=== PATIENT | female | born 1985 | race Caucasian/White ===

== ENCOUNTER 2016-10-30 20:30 | Inpatient (IN) | payer OTHER ==
[~2016-10-30 20:30] MED LIST: Dinoprostone* 10 MG VAG.SUPP VAGINAL ONE
[2016-10-31 00:34] LABS: Hematocrit 32 % (35-47); Hemoglobin 10.4 g/dl (12.0-16.0); Mean Corpuscular HGB Conc 33 g/dl (31-36); Mean Corpuscular Hemoglobin 26 pg (27-31); Mean Corpuscular Volume 81 fL (80-97); Mean Platelet Volume 9 um3 (7.4-10.4); Red Blood Count 3.96 10^6/ul (4.0-5.4); Red Cell Distribution Width 17 % (10.5-15); White Blood Count 9.8 10^3/ul (3.5-10.8)
[2016-10-31] MEDS ORDERED: ceFOXitin 2 GM IVPREMIX* 2 GM/50 ML BAG ONE (01:19)
[2016-10-31] MEDS ORDERED: Sodium Citrate/Citric Acid* 15 ML UDC ONE (01:19)
[2016-10-31 01:29] LABS: BUN/Creatinine Ratio 16.4 (8-20); Calcium 8.6 mg/dL (8.6-10.3); EGFR African American 163.7 (>60); EGFR Non-African American 127.3 (>60); Globulin 2.7 g/dL (2-4); Potassium 3.9 mmol/L (3.5-5.0); Total Bilirubin 0.3 mg/dL (0.2-1.0); Total Protein 5.7 g/dL (6.4-8.9)
[2016-10-31] MEDS ORDERED: Morphine PF AMP (0.5MG/ML)* 5 MG/10 ML AMP ONE (02:01)
[2016-10-31] MEDS ORDERED: fentaNYL* 50 MCG/ML 2 ML VIAL (100 MCG VIAL) ONE (02:23)
[2016-10-31] MEDS ORDERED: Carboprost Tromethamine* 250 MCG INJ ONE ×2 (02:23→02:25)
[2016-10-31] MEDS ORDERED: OXYTOCIN* 10 UNITS/ML 1 ML VIAL ONE ×2 (02:24→06:53)
[2016-10-31] MEDS ORDERED: Oxytocin in LR* 40 UNITS/2,000 ML BAG IVPB ONE (02:24)
[2016-10-31] MEDS ORDERED: Lidocaine 2% PF * 5 ML VIAL ONE (02:29)
[2016-10-31] MEDS ORDERED: Dexamethasone IV* 4 MG/ML 1 ML (4 MG) ONE (02:29)
[2016-10-31] MEDS ORDERED: Propofol* 10 MG/ML 20 ML BTL IV PUSH ONE (02:29)
[2016-10-31] MEDS ORDERED: Ondansetron INJ* 2 MG/ML VIAL ONE (02:29)
[2016-10-31] MEDS ORDERED: Succinylcholine* 20 MG/ML 10 ML VIAL ONE (02:29)
[2016-10-31] MEDS ORDERED: Zolpidem TAB* 5 MG PO PRN (03:18)
[2016-10-31] MEDS ORDERED: Glycerin ADULT SUPP PR PRN (03:18)
[2016-10-31] MEDS ORDERED: Misoprostol TAB* 200 MCG PR ONE (03:18)
[2016-10-31] MEDS ORDERED: Witch Hazel PAD* JAR TOPICAL PRN (03:18)
[2016-10-31] MEDS ORDERED: Dibucaine 1% 28.35 GM TUBE PR PRN (03:18)
[2016-10-31] MEDS ORDERED: oxyCODONE/Acetamin 5/325 MG* TAB PO PRN ×2 (03:18)
[2016-10-31] MEDS ORDERED: Carboprost Tromethamine* 250 MCG INJ IM ONE (03:18)
[2016-10-31] MEDS ORDERED: Acetaminophen TAB* 325 MG PO PRN (03:18)
[2016-10-31] MEDS: fentaNYL* 50 MCG/ML 2 ML VIAL (100 MCG VIAL) IV PRN ×2 (03:25→03:49)
[2016-10-31] MEDS ORDERED: oxyCODONE TAB* 5 MG TAB PO PRN (03:37)
[2016-10-31] MEDS ORDERED: HYDROmorphone* 1 MG/ML 1 ML SYR IV PRN (03:37)
[2016-10-31] MEDS ORDERED: Ketorolac INJ* 30 MG/ML 1 ML VIAL IV PRN (03:37)
[2016-10-31] MEDS ORDERED: Labetalol IV* 5 MG/ML 20 ML VIAL ONE (03:44)
[2016-10-31] MEDS ORDERED: Oxytocin in LR* 20 UNITS/1,000 ML BAG IVPB SCH (04:00)
[2016-10-31] MEDS ORDERED: HYDROmorphone PCA* 20 MG/20 ML PCA.SYRING PCA SCH (04:00)
[2016-10-31] MEDS ORDERED: Ketorolac INJ* 30 MG/ML 1 ML VIAL ONE (04:36)
[2016-10-31] MEDS ORDERED: Labetalol IV* 5 MG/ML 20 ML VIAL IV PUSH ONE (06:00)
[2016-10-31] MEDS ORDERED: Oxytocin in LR* 20 UNITS/1,000 ML BAG IVPB ONE (06:09)
[2016-10-31] MEDS: Simethicone CHEW TAB* 80 MG PO SCH ×4 (08:50→20:44)
[2016-10-31] MEDS: Ibuprofen TAB* 600 MG PO PRN ×2 (08:51→20:45)
[2016-10-31] MEDS: Labetalol TAB* 100 MG PO SCH ×2 (08:51→20:45)
[2016-10-31] MEDS: Docusate CAP* 100 MG PO SCH ×3 (08:51→20:45)
--- NOTE | 2016-10-31 13:03 | OP ---
DATE OF OPERATION: 10/30/16 - ROOM# [id number] DATE OF : 81 SURGEON: Pb Khan MD PROMOTIONS COORDINATOR: Eunice Alanis MD ANESTHESIOLOGIST: Antionette Sanchez MD ANESTHESIA: General endotracheal tube. PRE-OP DIAGNOSES: Preeclampsia and category 2 tracing, remote from delivery. POST-OP DIAGNOSES: Preeclampsia and category 2 tracing, remote from delivery. OPERATIVE PROCEDURE: Stat section. COMPLICATIONS: Include uterine atony. FINDINGS: This is a 31-year-old 4 para 2, who presented at 38 plus weeks with mild preeclampsia. She was started on Cervidil at approximately 10 o 'clock in the evening. Around midnight, baby began to develop tachycardia and was sustained for over an hour in the 180s. She was given IV hydration, O2, and put on her left side. After this period of time, there began occasional deep variable decels down into the 60s and 80s, and the patient did not seem to be ovi significantly. A was called. At that time, it went down to 80 again. I was called urgently and we went back to the operating room. By the time Anesthesia arrived, the heart rate was in the 120s with moderate variability, but when she sat up, the heart rate could not be distinguished from maternal heart rate and thought it was possibly in the 80s again. Decision was made to proceed with general anesthesia and at the time of , she had a viable female, Apgars 8 and 9, weight was 8 pounds 8 ounces. Placenta contained calcifications. The tubes and ovaries appeared normal. DESCRIPTION OF PROCEDURE: The patient was identified and procedure identified as stat section. The patient was in the operating room and under general anesthesia, was prepped and draped quickly and a Pfannenstiel incision was made in the abdomen and carried down through the fat, fascia, and peritoneum. A transverse incision was made in the lower uterine segment and extended laterally using blunt dissection. The above infant was delivered through the incision with ease. A cord was noted to be wrapped around the neck and bunched up along the shoulder. Once the infant was delivered, the cord was doubly clamped and cut, and the infant was handed to the awaiting meat team lead. Cord blood and cord pH was obtained. Placenta delivered manually. The uterus was wiped out with a wet lap sponge. Uterus was brought out through the abdominal incisions. Uterine atony was noted. The patient was given IV Pitocin , dose of 250 mcg of Hemabate, and Cytotec 800 per rectum. With this, the uterine tone improved. The uterus incision was closed using 0 Polysorb in a running fashion. A second layer was used to imbricate the first layer. Hemostasis was achieved on the uterus. The uterus was placed back into the abdominal cavity. The gutters wiped out with a wet lap sponge. Good hemostasis was verified. The peritoneum was closed using 3-0 Polysorb in a running fashion. Hemostasis was achieved in the subrectus layer. The fascia was closed using 0 Polysorb in a running fashion. Copious irrigation was utilized and suctioned out of the subcuticular space. This was closed using 3- 0 Polysorb in a simple fashion and the skin was closed with 4-0 Monocryl in a subcuticular fashion. Mastisol and Steri-Strips were applied, and the patient returned to recovery room in stable condition. All sponge and instrument counts were correct. [id number]/[facility] #: [id number] [facility]OSPITALMulugeta
[2016-11-01] MEDS: Ibuprofen TAB* 600 MG PO PRN ×3 (03:07→17:11)
[2016-11-01] MEDS: oxyCODONE/Acetamin 5/325 MG* TAB PO PRN ×4 (07:03→22:45)
[2016-11-01] MEDS: Labetalol TAB* 100 MG PO SCH ×2 (08:32→20:50)
[2016-11-01] MEDS: Simethicone CHEW TAB* 80 MG PO SCH ×4 (08:32→20:50)
[2016-11-01] MEDS: Docusate CAP* 100 MG PO SCH ×3 (08:32→20:50)
[2016-11-01] MEDS: Ferrous Gluconate TAB* 324 MG TAB PO SCH ×2 (08:34→20:50)
[2016-11-01 09:00] LABS: Hematocrit 23 % (35-47); Hemoglobin 7.4 g/dl (12.0-16.0); Mean Corpuscular HGB Conc 32 g/dl (31-36); Mean Corpuscular Hemoglobin 26 pg (27-31); Mean Corpuscular Volume 81 fL (80-97); Mean Platelet Volume 8 um3 (7.4-10.4); Red Blood Count 2.84 10^6/ul (4.0-5.4); Red Cell Distribution Width 17 % (10.5-15); White Blood Count 8.7 10^3/ul (3.5-10.8)
[2016-11-02] MEDS: Ibuprofen TAB* 600 MG PO PRN ×2 (04:00→16:32)
[2016-11-02] MEDS: oxyCODONE/Acetamin 5/325 MG* TAB PO PRN ×4 (04:00→22:02)
[2016-11-02] MEDS: Docusate CAP* 100 MG PO SCH ×3 (07:44→22:02)
[2016-11-02] MEDS: Ferrous Gluconate TAB* 324 MG TAB PO SCH ×2 (07:44→22:03)
[2016-11-02] MEDS: Simethicone CHEW TAB* 80 MG PO SCH ×4 (07:44→22:02)
[2016-11-02] MEDS: Labetalol TAB* 100 MG PO SCH ×2 (09:20→22:02)
[2016-11-03] MEDS: oxyCODONE/Acetamin 5/325 MG* TAB PO PRN ×2 (04:12→07:59)
[2016-11-03] MEDS: Ibuprofen TAB* 600 MG PO PRN ×2 (04:12→11:37)
[2016-11-03 09:21] VITALS: BP 154/75
[2016-11-03] MEDS: Docusate CAP* 100 MG PO SCH (09:29)
[2016-11-03] MEDS: Labetalol TAB* 100 MG PO SCH (09:29)
[2016-11-03] MEDS: Ferrous Gluconate TAB* 324 MG TAB PO SCH (09:29)
[2016-11-03] MEDS: Simethicone CHEW TAB* 80 MG PO SCH (09:30)
== END 2016-11-03 13:30 | disposition home or self-care (01) | DRG 540 ==
LOC: MCHOBOUT 20:30 → MCHOB 21:27
PROVIDERS: ADMIT Obstetrics & Gynecology; ATTEND Obstetrics & Gynecology
PROC: 3E033VJ Introduction of Other Hormone into Peripheral Vein, Percutaneous Approach (ICD-10-PCS; 2016-10-31)
PROC: 10D00Z1 Extraction of Products of Conception, Low, Open Approach (ICD-10-PCS; principal; 2016-10-31 01:43)
DX: O76 Abnormality in fetal heart rate and rhythm complicating labor and delivery (principal); D64.9 Anemia, unspecified; O14.04 Mild to moderate pre-eclampsia, complicating childbirth; O90.81 Anemia of the puerperium; O62.2 Other uterine inertia; O69.81X0 Labor and delivery complicated by cord around neck, without compression, not applicable or unspecified; Z3A.38 38 weeks gestation of pregnancy; Z37.0 Single live birth
CPT/HCPCS: 36415; 80053; 85025; 86850; 86900; 86901; 88307; A9270-GY; J0330; J0694; J1100; J1885; J2270; J2405; J2590; J2704; J3010

== ENCOUNTER 2017-08-16 09:05 | Emergency (ER) | payer OTHER ==
[2017-08-16 09:23] VITALS: BP 166/99
--- NOTE | 2017-08-16 10:07 | UC ---
Shaan Monreal Julia, scribed for Deandra Way MD on 08/16/17 at 0930 . Headache HPI - HPI Summary HPI Summary: This patient is a 31 year old F presenting to [facility] accompanied by her daughter with a chief complaint of right sided headache for the past five days. Pt rates pain 3/10 in severity. Patient reports erythematous eyes, photophobia, chills, sweats, and fever measured at 102F on 08/12/17. Afebrile for several days , then had a temp of 100 last evening. Pain is exacerbated by activity. No ibuprofen taken for the past 2 days, took acetaminophen yesterday, nothing today. Patient denies numbness/tingling, GI symptoms, dizziness, vision changes, nausea, vomiting, and dysuria. She reports a history of migraines but they are not usually continuous as they have been. She typically gets a migraine once a month. Migraines are typically managed by Tylenol and Ibuprofen (600mg). She has never seen a neurologist or had a management plan for headaches. On she took two 600mg Ibuprofen. She took an oxycodone last night with momentary relief. She states she is staying well hydrated and sleeping well, because sleep deprivation and dehydration are often triggers for her migraines. However she states has dark urine, dry mouth and thirst . She has never used any other medications for migraines. No normal menstrual period since the of her 9 month old daughter. She is still . She states her blood pressure fluctuates with no formal dx of HTN. Last blood pressure checked at Dr. Last office after post-. Pt has a 12 y/o, 9 y/o, and 9 month old at home. She is a single mother. 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 - History Of Current Complaint Stated Complaint: HEADACHES Time Seen by Provider: 08/16/17 09:21 Hx Obtained From: Patient Hx Last Menstrual Period: post- ?: No Onset/Duration: Lasting Days Onset Of Symptoms: Still Present Pain Intensity: 3 Pain Scale Used: 0-10 Numeric Timing: Constant Character: Migraine Location of Headache: Other: - right sided Aggravating Factor(s): Bright Lights Allevating Factor(s): Nothing, Medication - temorary Associated Signs And Symptoms: Positive: Fever. Negative: Dizziness, Nausea, Vomiting, Visual Changes Related History: Similar Episode/DX As: - migraine - Allergies/Home Medications Allergies/Adverse Reactions: Allergies Allergy/AdvReac Type Severity Reaction Status Date / Time Penicillins Allergy Hives Verified 08/16/17 09:13 Home Medications: Home Medications Acetaminophen [Tylenol] 1,000 mg PO BID PRN 08/16/17 [History Confirmed 08/16/17 ] PMH/Surg Hx/FS Hx/Imm Hx - Additional Past Medical History Additional PMH: obese Neurological History: Migraine - Surgical History Surgical History: Yes Surgery Procedure, Year, and Place: [facility] 2005 - Family History Known Family History: Positive: Cardiac Disease - grandmother, Hypertension - grandmother, Diabetes - grandmother, Other - Social History Occupation: Employed Part-time Lives: With Family - 12 year old daughter, 9 year old son, 9 months old child Alcohol Use: None Substance Use Type: None Smoking Status (MU): Never Smoked Tobacco Review of Systems Constitutional: Fever - noted on 2 occasions in the past week, but not recurring. Skin: Negative Eyes: Negative ENT: Negative Respiratory: Negative Cardiovascular: Negative Gastrointestinal: Negative Genitourinary: Other - dark urine, no dysuria Motor: Negative Neurovascular: Negative Musculoskeletal: Negative Neurological: Negative - dizziness and numbness, Headache Psychological: Negative Is Patient Immunocompromised?: No All Other Systems Reviewed And Are Negative: Yes Physical Exam Triage Information Reviewed: Yes Completion Of Physical Exam Limited Due To: Other - Here with 9 mo daughter, other children in waiting room. Appearance: Well-Appearing, Pain Distress - mild to moderate., Obese Vital Signs: Initial Vital Signs Temp 97.9 F 08/16/17 09:15 Pulse 76 08/16/17 09:15 Resp 16 08/16/17 09:15 BP 166/99 08/16/17 09:15 Pulse Ox 97 08/16/17 09:15 Eye Exam: Other - MAKEDA, no photophobia, fundi normal with normal venous pulsations. Normal EOM without nystagmus. Eyes: Positive: Conjunctiva Clear ENT: Positive: Pharynx normal, TMs normal Neck: Positive: Supple, Nontender, No Lymphadenopathy Respiratory: Positive: Lungs clear, Normal breath sounds Cardiovascular: Positive: RRR, No Murmur Musculoskeletal: Positive: Strength Intact Neurological Exam: Other - CNII-XII normal. No pronator drift. Negative Romberg' s. Gait normal. Neurological: Positive: Alert, Muscle Tone Normal Psychological Exam: Other - Mildly depressed mood and affect. Skin Exam: Normal Headache Course/Dx - Course Course Of Treatment: discussed options and she declined medications today-- offered toradol but declined. Discussed blood pressure elevation, and labs drawn today with followup advised with her PMD on Friday for BP assessment. - Differential Dx/Diagnosis Differential Diagnosis/HQI/PQRI: Sinus Headache, Tension Headache, Other - hypertension Provider Diagnoses: headache NYD, elevated blood pressure. Discharge - Sign-Out/Discharge Documenting (check all that apply): Discharge - Discharge Plan Condition: Stable Disposition: HOME Patient Education Materials: Acute Headache (ED), Hypertension (ED) Referrals: Clifton Snow MD [Primary Care Provider] - Additional Instructions: As discussed, it is not clear if your headache is related to elevated blood pressure or a changing pattern of migraines. Lab work has been drawn to help to assess this. Follow up with Dr. Snow at [facility] on Friday the . You can use acetaminophen 1000mg up to three times daily for headache. Ensure that you continue to keep up a high intake of fluids. - Billing Disposition and Condition Condition: STABLE Disposition: HOME The documentation as recorded by the Shaan sands Julia accurately reflects the service I personally performed and the decisions made by me, Deandra Way MD.
[2017-08-16 13:53] LABS: Hematocrit 35 % (35-47); Hemoglobin 11.7 g/dl (12.0-16.0); Mean Corpuscular HGB Conc 34 g/dl (31-36); Mean Corpuscular Hemoglobin 27 pg (27-31); Mean Corpuscular Volume 80 fL (80-97); Mean Platelet Volume 8.1 um3 (7.4-10.4); Platelet Count 148 10^3/ul (150-450); Red Blood Count 4.36 10^6/ul (4.0-5.4); Red Cell Distribution Width 16 % (10.5-15); White Blood Count 5.9 10^3/ul (3.5-10.8)
[2017-08-16 13:57] LABS: EGFR Non-African American 110.9 (>60)
[2017-08-16 14:27] LABS: Monocytes % 2 % (0-7)
--- NOTE | 2017-08-17 07:42 | UC ---
- Progress Note Progress Note: Labs reviewed. Please call patient to review. Was seen yesterday with headache and mailaise. Please call her to advise that the lab work most suggests a viral illness: she has an increase in lymphocytes, increase in her c reactive protein , and mild elevation of her liver function tests. Her blood count is a little low. Nothing too worrisome, but she should follow up with her primary care physician to track her symptoms and to arrange a follow up of the elevated liver function tests. Usually the follow up lab work is done in about a month. Discharge - Sign-Out/Discharge Documenting (check all that apply): Discharge - Discharge Plan Condition: Stable Disposition: HOME Patient Education Materials: Acute Headache (ED), Hypertension (ED) Referrals: Clifton Snow MD [Primary Care Provider] - Additional Instructions: As discussed, it is not clear if your headache is related to elevated blood pressure or a changing pattern of migraines. Lab work has been drawn to help to assess this. Follow up with Dr. Snow at [facility] on Friday the . You can use acetaminophen 1000mg up to three times daily for headache. Ensure that you continue to keep up a high intake of fluids. - Billing Disposition and Condition Condition: STABLE Disposition: HOME
== END 2017-08-16 10:14 | disposition home or self-care (01) ==
LOC: UCEAST 09:05
DX: R51 Headache (principal); R50.9 Fever, unspecified; R03.0 Elevated blood-pressure reading, without diagnosis of hypertension; R82.99 Other abnormal findings in urine; Z88.0 Allergy status to penicillin
CPT/HCPCS: 36415; 80053; 84443; 85025; 86140; 99211; G0463

== ENCOUNTER 2018-07-16 10:11 | Emergency (ER) | payer OTHER ==
[2018-07-16 11:07] VITALS: BP 182/82
[2018-07-16] MEDS ORDERED: Ketorolac INJ* 60 MG/2 ML VIAL IM ONE (11:42)
--- NOTE | 2018-07-16 11:49 | UC ---
Dental HPI - HPI Summary HPI Summary: Patient has a fractured tooth on the right bottom jaw. she has seen the dentist 2 days ago and placed on clindamycin for infection. she has been taking ibuprofen without relief. swelling of the jaw noted. - History of Current Complaint Chief Complaint: UCDentalProblem Stated Complaint: RECHECK DENTAL CONCERN Time Seen by Provider: 07/16/18 11:18 Hx Obtained From: Patient Hx Last Menstrual Period: 06/20/18 ?: No Onset/Duration: Sudden Onset, Lasting Days Severity: Severe Pain Intensity: 9 Aggravating Factor(s): Heat, Cold, Chewing Related History: Previous Dental Care on Same Tooth, Swelling - Allergies/Home Medications Allergies/Adverse Reactions: Allergies Allergy/AdvReac Type Severity Reaction Status Date / Time Penicillins Allergy Hives Verified 07/16/18 10:53 Home Medications: Home Medications Acetaminophen TAB* [Tylenol TAB*] 650 mg PO Q4H PRN 07/16/18 [History Confirmed 07/16/18] PMH/Surg Hx/FS Hx/Imm Hx Previously Healthy: Yes - Surgical History Surgical History: Yes Surgery Procedure, Year, and Place: [facility] 2005. - Family History Known Family History: Positive: Cardiac Disease - grandmother, Hypertension - grandmother, Diabetes - grandmother, Other - Social History Alcohol Use: None Substance Use Type: None Smoking Status (MU): Never Smoked Tobacco Review of Systems All Other Systems Reviewed And Are Negative: Yes Constitutional: Positive: Negative Skin: Positive: Negative Eyes: Positive: Negative ENT: Positive: Dental Pain, Sinus Congestion Respiratory: Positive: Negative Cardiovascular: Positive: Negative Gastrointestinal: Positive: Negative Genitourinary: Positive: Negative Motor: Positive: Negative Neurovascular: Positive: Negative Musculoskeletal: Positive: Negative Neurological: Positive: Negative Psychological: Positive: Negative Is Patient Immunocompromised?: No Physical Exam Triage Information Reviewed: Yes Appearance: Well-Appearing, Well-Nourished, Pain Distress Vital Signs: Initial Vital Signs Temp 99 F 07/16/18 10:55 Pulse 54 07/16/18 10:55 Resp 18 07/16/18 10:55 BP 182/82 07/16/18 10:55 Pulse Ox 100 07/16/18 10:55 Vital Signs Reviewed: Yes Eye Exam: Normal ENT Exam: Normal ENT: Positive: Pharyngeal erythema, TMs normal Dental: Positive: Dental Fracture @, Cellulitis @, Other: - swlling of the right mandible Neck exam: Normal Respiratory Exam: Normal Respiratory: Positive: Chest non-tender, Lungs clear, Normal breath sounds Cardiovascular Exam: Normal Cardiovascular: Positive: RRR, No Murmur, Pulses Normal Abdominal Exam: Normal Bowel Sounds: Positive: Present Musculoskeletal Exam: Normal Neurological Exam: Normal Psychological Exam: Normal Skin Exam: Normal Dental Complaint Course/Dx - Course Course Of Treatment: hx obtained, exam performed ,meds reviewed, treaed for pain. - Differential Dx/Diagnosis Differential Diagnosis/Dx: Dental Abscess, Fractured Tooth Provider Diagnosis: Pain, dental Discharge - Sign-Out/Discharge Documenting (check all that apply): Patient Departure All imaging exams completed and their final reports reviewed: No Studies - Discharge Plan Condition: Stable Disposition: HOME Prescriptions: Acetaminop/Codeine 30 MG TAB* [Tylenol/Codeine 30 MG TAB*] 1 tab PO Q6H PRN #8 tab MDD 4 tab PRN Reason: Pain Patient Education Materials: Toothache (ED) Referrals: Clifton Snow MD [Primary Care Provider] - Additional Instructions: 1. You received a toradol shot today at noon and 1000 mg of tylenol. At 8 pm tonight take another 600 mg of ibuprofen and 1000 mg of tylenol. you can substitute the tylenol with a tylenol #3 and an additional 500 -650 of tylenol at that time. continue with the 600 mg of ibuprofen and 1000 mg of tylenol every 8 hours for pain 2. Coconut oil swishes frequently throughout the day. take a scoop of coconut oil and swish it back and forth over the tooth for 3 minutes, spit it out into the garbage and rinse out your mouth. 3. COntinue with the clindamycin as prescribed. - Billing Disposition and Condition Condition: STABLE Disposition: Home
[2018-07-16] MEDS ORDERED: Acetaminophen TAB* 325 MG PO ONE (11:50)
== END 2018-07-16 12:04 | disposition home or self-care (01) ==
LOC: UCCORT 10:11
DX: K08.89 Other specified disorders of teeth and supporting structures (principal); S02.5XXA Fracture of tooth (traumatic), initial encounter for closed fracture; R09.81 Nasal congestion; Z88.0 Allergy status to penicillin; X58.XXXA Exposure to other specified factors, initial encounter; Y92.9 Unspecified place or not applicable
CPT/HCPCS: 96372; 99212; A9270-GY; G0463; J1885

== ENCOUNTER 2018-12-08 10:56 | Emergency (ER) | payer OTHER ==
--- NOTE | 2018-12-08 13:54 | ED ---
Headache - HPI Summary HPI Summary: The patient is a 33 y/o F presenting to [facility] with a chief complaint of frontal and eye sinus pressure starting yesterday. She reports when the pressure started , she took a sinus relief medication. Today, she started to have the pressure again, and she took a nap and shower to some relief as well as sinus Aleve and Tylenol. The symptoms are aggravated by bending forward. Currently, the pain is rated 6/10 in severity. She additionally c/o nausea and dizziness. She also has been experiencing dental pain secondary to a diagnosed abscess. She denies rhinorrhea, ear pain, CP, or SOB. She notes that she gets migraines but usually they are on one side or the other. Pt states has a prescription for zyrtec but has not been taking consistently. no ear pain. sTates yesterday had ear pressure and was "slightly dizzy" with head movement - improved today. She states that she stopped taking her BP medications about a year ago. No possibility of . No one at home is sick, and she denies any recent travel. Patients medications reviewed this visit. - History Of Current Complaint Chief Complaint: EDHeadache Stated Complaint: NAUSEA/DIZZY/HEAD PAIN PER PT Time Seen by Provider: 12/08/18 13:04 Hx Obtained From: Patient Hx Last Menstrual Period: 06/20/18 Onset/Duration: Started hours ago - yesterday, Still Present Initially Headache Was: Moderate Currently Pain Is: Current Pain Scale(0-10)= - 6 Timing: Hours Character: Pressure Location of Headache: Frontal - at eyes Aggravating Factor: Other - bending forward Allevating Factors: Rest, Other (Noted In Comments) - Aleve, Tylenol Associated Signs And Symptoms: Dizziness, Nausea, Sinus Pressure, Other (Noted In Comments) - NEGATIVE: rhinorrhea, ear ache, CP, SOB - Allergies/Home Medications Allergies/Adverse Reactions: Allergies Allergy/AdvReac Type Severity Reaction Status Date / Time Penicillins Allergy Hives Verified 07/16/18 10:53 PMH/Surg Hx/FS Hx/Imm Hx Previously Healthy: Yes Endocrine/Hematology History: Denies: Hx Diabetes, Hx Thyroid Disease Cardiovascular History: Reports: Hx Hypertension - HAS NOT TAKEN BP MED IN OVER A YEAR Respiratory History: Reports: Hx Asthma - EXERCISE INDUCED Denies: Hx Chronic Obstructive Pulmonary Disease (COPD) GI History: Denies: Hx Ulcer - Surgical History Surgery Procedure, Year, and Place: [facility] 2005. Infectious Disease History: No Infectious Disease History: Denies: Hx Hepatitis, Hx Human Immunodeficiency Virus (HIV), Traveled Outside the [place] in Last 30 Days - Family History Known Family History: Positive: Cardiac Disease - grandmother, Hypertension - grandmother, Diabetes - grandmother, Other, Non-Contributory - Social History Occupation: Employed Full-time Alcohol Use: Rare Substance Use Type: Reports: Marijuana Smoking Status (MU): Never Smoked Tobacco Review of Systems Constitutional: Negative Positive: Dental Pain. Negative: Ear Ache, Nasal Discharge Negative: Chest Pain Negative: Shortness Of Breath, Cough Positive: Headache - sinus pressure All Other Systems Reviewed And Are Negative: Yes Physical Exam - Summary Physical Exam Summary: Vital Signs Reviewed: Yes A+Ox3, no distress Eyes: Conjunctiva Clear, MAGNUS. EOM intact and full ENT: Hearing grossly normal TM x 2 clear, mild discomfort with palpation frontal sinuses, turbinates inflammed , no pnd mmoist, uvula midline, no exudate, no erythema Neck: Positive: Supple Respiratory: Positive: No respiratory distress, No accessory muscle use + CTA throughout no w/r Cardiovascular: RRR nl s1, s2 no m/r CBT <2 sec, no temporal artery discomfort abd soft + BS nt/nd no guarding, no distension Musculoskeletal Exam: PENA x 4 without difficulty Strength Intact, ROM Intact Neurological: Positive: Alert, + sensation throughout Psychological: Positive: Normal Response To examiner Skin: Positive: no rash, no ecchymosis Triage Information Reviewed: Yes Vital Signs On Initial Exam: Initial Vitals Temp Pulse Resp BP Pulse Ox 97.1 F 57 18 160/96 97 12/08/18 11:03 12/08/18 11:03 12/08/18 11:03 12/08/18 11:03 12/08/18 11:03 Vital Signs Reviewed: Yes Diagnostics - Vital Signs Vital Signs Temp Pulse Resp BP Pulse Ox 12/08/18 12:52 97.5 F 63 18 164/84 98 12/08/18 11:03 97.1 F 57 18 160/96 97 - Laboratory Lab Statement: Any lab studies that have been ordered have been reviewed, and results considered in the medical decision making process. Re-Evaluation - Re-Evaluation First Eval Re-Evaluation Time: 13:57 Comment: We discussed discharge home. Headache Course/Dx - Course Course Of Treatment: Patient presents in respiratory reporting sinus pressure progressive over the last to 3 days. Patient states she took a decongestant that seemed to help but today it got worse. Patient took Aleve and Tylenol in the resting some she's been fevers. The with improvement in her symptoms. Patient without any fevers or chills. Patient states pressure is worse when she leans forward shower. On exam vital signs: Blood pressure. Patient with a history of same. Recommend patient follow up with PCP to consider resuming medications. Patient with some mild discomfort frontal sinuses otherwise no acute findings. We'll give patient doxycycline as she is prednisone as well as Flonase. Strict return precautions. Patient comfortable in agreement with plan. - Diagnoses Provider Diagnoses: Rhinosinusitis Discharge - Sign-Out/Discharge Documenting (check all that apply): Patient Departure - Patient will be discharged home. Patient Received Moderate/Deep Sedation with Procedure: No - Discharge Plan Condition: Stable Disposition: HOME Prescriptions: DOXYcycline CAP(*) [DOXYcycline 100MG CAP(*)] 100 mg PO BID #20 cap Fluticasone NASAL SPRAY 50MCG* [Flonase NASAL SPRAY 50MCG*] 1 spray BOTH NARES DAILY #1 btl Patient Education Materials: Rhinosinusitis (ED) Forms: *Work Release Referrals: Clifton Snow MD [Primary Care Provider] - Additional Instructions: - stay well hydrated - drink plenty of non-alcoholic, non-caffinated beverages -These infections are spread by oral secretions. Do not share eating or drinking utensils. Frequent hand washing is important. Clean items that may get your secretions on them such as cell phones, ipads, computer mouse, television remotes. Once you have been on antbiotics for 2 days, change your pillowcase and your toothbrush - Alternate ibuprofen (Advil, Motrin) 600mg and Tylenol every 3 hours for pain or fever. Take with food. Do NOT take for more than 4-5 days. - get plenty of restful sleep - okay to take allergy medication as previously prescribed - use nasal spray as prescribed - contact your doctor or return with questions or concerns As discussed, contact your doctor to discuss your blood pressure - Billing Disposition and Condition Condition: STABLE Disposition: Home - Attestation Statements Document Initiated by Scribe: Yes Documenting Scribe: Brittany Carpenter Provider For Whom Scribe is Documenting (Include Credential): Dr. Meagan Thayer MD Scribe Attestation: I, Brittany Carpenter, scribed for Dr. Meagan Thayer MD on 12/08/18 at 1554. Scribe Documentation Reviewed: Yes Provider Attestation: The documentation as recorded by the Brittany sands accurately reflects the service I personally performed and the decisions made by me, Dr. Meagan Thayer MD Status of Scribe Document: Viewed
[2018-12-08 14:08] VITALS: BP 160/81
== END 2018-12-08 14:08 | disposition home or self-care (01) ==
LOC: ED 10:56
DX: J32.9 Chronic sinusitis, unspecified (principal); Z88.0 Allergy status to penicillin; I10 Essential (primary) hypertension; J45.909 Unspecified asthma, uncomplicated
CPT/HCPCS: 99282

== ENCOUNTER 2019-02-09 10:27 | Emergency (ER) | payer OTHER ==
[2019-02-09 10:43] VITALS: BP 126/70
--- NOTE | 2019-02-09 12:24 | UC ---
Complaint Female HPI - HPI Summary HPI Summary: ONSET YESTERDAY OF LEFT LABIAL SWELLING AND PAIN. NO VAGINAL DISCHARGE OR URINARY SYMPTOMS. STATES A FEW DAYS AGO SHE SHAVED HER GENITAL AREA SMOOTH TO THE SKIN AND THEN LATER THAT DAY HAD SEX. - History Of Current Complaint Chief Complaint: JADkin Stated Complaint: PERSONAL AND SHOULDER PAIN Time Seen by Provider: 02/09/19 11:17 Hx Obtained From: Patient Hx Last Menstrual Period: 01/26/19 Onset/Duration: Gradual Onset, Lasting Days, Still Present Timing: Constant Severity Initially: Moderate Severity Currently: Moderate Pain Intensity: 6 Pain Scale Used: 0-10 Numeric Aggravating Factor(s): Movement, [place] Alleviating Factor(s): Nothing Associated Signs And Symptoms: Positive: Genital Swelling. Negative: Fever, Back Pain, Vaginal Bleeding/Discharge, Nausea - Allergies/Home Medications Allergies/Adverse Reactions: Allergies Allergy/AdvReac Type Severity Reaction Status Date / Time Penicillins Allergy Hives Verified 02/09/19 10:43 Home Medications: Home Medications Oxycodone HCl/Acetaminophen [Percocet 5-325 mg Tablet] 1 tab PO ONCE PRN [History Confirmed 02/09/19] PMH/Surg Hx/FS Hx/Imm Hx Cardiovascular History: Hypertension Respiratory History: Asthma - Surgical History Surgical History: Yes Surgery Procedure, Year, and Place: [facility] 2005. - Family History Known Family History: Positive: Cardiac Disease - grandmother, Hypertension - grandmother, Diabetes - grandmother, Other, Non-Contributory - Social History Alcohol Use: Occasionally Substance Use Type: Marijuana Smoking Status (MU): Never Smoked Tobacco Review of Systems All Other Systems Reviewed And Are Negative: Yes Constitutional: Positive: Negative Skin: Positive: Other - LABIAL SWELLING, REDNESS Respiratory: Positive: Negative Cardiovascular: Positive: Negative Gastrointestinal: Positive: Negative Genitourinary: Positive: Vaginal/Penile Pain. Negative: Dysuria, Frequency, Urgency Physical Exam Triage Information Reviewed: Yes Appearance: Well-Appearing, Well-Nourished, Pain Distress - MODERATE Vital Signs: Initial Vital Signs Temp 98.3 F 02/09/19 10:39 Pulse 82 02/09/19 10:39 Resp 18 02/09/19 10:39 BP 126/70 02/09/19 10:39 Pulse Ox 99 02/09/19 10:39 Vital Signs Reviewed: Yes Eyes: Positive: Conjunctiva Clear ENT: Positive: Hearing grossly normal Neck: Positive: Supple Respiratory: Positive: No respiratory distress, No accessory muscle use Cardiovascular: Positive: Pulses Normal Abdomen Description: Positive: Soft Musculoskeletal: Positive: No Edema Neurological: Positive: Alert Psychological: Positive: Age Appropriate Behavior Skin: Positive: Other - LEFT LABIA MAJORA ERYTHEMATOUS, SWOLLEN, INDURATED, TENDER. NO FLUCTANCE.. Negative: Rashes Complaint Female Dx - Course Course Of Treatment: PATIENT HAS A CELLULITIS OF HER LEFT LABIA MAJORA THAT MAY BE DEVELOPING INTO AN ABSCESS. SHE RECENTLY SHAVED HER GENITAL AREA AND LIKELY SOME BACTERIA SEEDED IN A MICROABRASION IN THE SKIN AND CAUSED THE INFECTION. THERE IS NO FLUCTUANCE TO INDICATE THAT INCISION AND DRAINAGE WOULD BE BENEFICIAL. ADVISED HOT SOAKS 3-4 TIMES DAILY. PATIENT HAS A NEW PRESCRIPTION FOR CLINDAMYCIN WHICH SHE HAS NOT YET FILLED FOR A DENTAL ABSCESS. SHE IS SUPPOSED TO HAVE DENTAL WORK DONE IN 11 DAYS SO I ADVISED HER TO START THE MEDICINE TODAY AND TO COMPLETE IT THIS WILL PROVIDE DOUBLE COVERAGE FOR HER DENTAL ABSCESS AND HER LABIAL INFECTION. OF NOTE PATIENT INITIALLY ALSO WANTED TO BE SEEN FOR RIGHT SHOULDER PAIN HOWEVER THIS IS A WORK-RELATED INJURY SO I ADVISED HER TO BE SEEN ON A SEPARATE VISIT FOR WORKMEN'S COMP EVALUATION. - Differential Dx/Diagnosis Provider Diagnosis: Cellulitis of labia majora Discharge ED - Sign-Out/Discharge Documenting (check all that apply): Patient Departure All imaging exams completed and their final reports reviewed: No Studies - Discharge Plan Condition: Stable Disposition: HOME Prescriptions: Fluconazole 150 MG (NF) [Diflucan 150 mg (NF)] 150 mg PO ONCE #2 tab Patient Education Materials: Abscess (ED) Forms: *Work Release Referrals: Clifton Snow MD [Primary Care Provider] - If Needed Additional Instructions: YOU HAVE DEVELOPED AN INFECTION OF YOUR LEFT LABIA MAJORA. HOT SOAKS 3-4 TIMES DAILY TAKE THE CLINDAMYCIN THAT YOU HAVE FOR YOUR DENTAL ABSCESS PRESCRIBED. THIS WILL HAVE DOUBLE COVERAGE FOR THE SKIN INFECTION YOU HAVE ON YOUR LABIA. NO SHAVING UNTIL YOUR SYMPTOMS ARE COMPLETELY RESOLVED. WOULD RECOMMEND THAT YOU AVOID SEX OR ANY OTHER ACTIVITIES THAT WILL INCREASE FRICTION/TRAUMA TO THE AREA UNTIL YOUR SYMPTOMS ARE RESOLVED. FOLLOW-UP WITH YOUR PCP IF YOU DO NOT IMPROVE WITH THIS MANAGEMENT. - Billing Disposition and Condition Condition: STABLE Disposition: Home
== END 2019-02-09 12:10 | disposition home or self-care (01) ==
LOC: UCEAST 10:27
DX: N76.2 Acute vulvitis (principal); M25.511 Pain in right shoulder; I10 Essential (primary) hypertension; J45.909 Unspecified asthma, uncomplicated; Z88.0 Allergy status to penicillin
CPT/HCPCS: 99212; G0463

== ENCOUNTER 2019-02-15 11:28 | Emergency (ER) | payer OTHER ==
--- NOTE | 2019-02-15 12:08 | ED ---
GI/ HPI - HPI Summary HPI Summary: Pt is a 33 y/o F presenting to the ED for a chief complaint of an abscess in the labia. Pt reports decreased swelling and erythema since initial onset, but still reports a hard mass on the labia and vaginal pain. Pt has had the abscess on the labia since June 2018. Pt takes Clinda which she has taken for 7 days with no relief in symptoms. Pt initially believed she had a cyst on her labia. Pt also reports dental pain. Pt denies any fever, chills, diaphoresis, weight loss, erythema of eyes, sore throat, CP, SOB, cough, abdominal pain, N/V, dysuria, hematuria, myalgia, edema, rash, or dizziness. Pt denies a PMHx of DM. Pt has a scheduled dental surgery in the upcoming weeks. - History of Current Complaint Chief Complaint: EDRashSkinAbscess Time Seen by Provider: 02/15/19 11:50 Stated Complaint: INFECTION Hx Obtained From: Patient Hx Last Menstrual Period: 01/26/19 Onset/Duration: Started Weeks Ago, Atraumatic, Still Present Timing: Constant, Lasting Weeks Severity: Severe Current Severity: Severe Pain Intensity: 7 Location of Pain: Groin Additional Location for Females: Vulva - Labia Associated Signs and Symptoms: Positive: Other:. Negative: Dizziness, Nausea, Vomiting, Weight Loss, Diaphoresis, Fever, Hematuria, Dysuria, Chills, Abdominal Pain, Cough, Chest Pain, UTI Symptoms - Negative dysuria or hematuria Additional Signs & Symptoms: Positive: Genital Swelling - Labia Aggravating Factor(s): Nothing Alleviating Factor(s): Nothing - Allergy/Home Medications Allergies/Adverse Reactions: Allergies Allergy/AdvReac Type Severity Reaction Status Date / Time Penicillins Allergy Hives Verified 02/15/19 11:33 Home Medications: Home Medications Clindamycin Cap(NF) [Clindamycin Cap 300 mg Cap(NF)] 300 mg PO BID 02/15/19 [ History Confirmed 02/15/19] PMH/Surg Hx/FS Hx/Imm Hx Previously Healthy: Yes Endocrine/Hematology History: Denies: Hx Diabetes, Hx Thyroid Disease Cardiovascular History: Reports: Hx Hypertension - not treated Respiratory History: Reports: Hx Asthma - EXERCISE INDUCED Denies: Hx Chronic Obstructive Pulmonary Disease (COPD) GI History: Denies: Hx Ulcer Sensory History: Denies: Hx Legally Blind, Hx Deafness Opthamlomology History: Denies: Hx Legally Blind EENT History: Denies: Hx Deafness - Surgical History Surgical History: Yes Surgery Procedure, Year, and Place: [facility] 2005. Infectious Disease History: No Infectious Disease History: Denies: Hx Hepatitis, Hx Human Immunodeficiency Virus (HIV), Traveled Outside the [place] in Last 30 Days - Family History Known Family History: Positive: Cardiac Disease - grandmother, Hypertension - grandmother, Diabetes - grandmother - Social History Alcohol Use: Occasionally Hx Substance Use: Yes Substance Use Type: Reports: Marijuana Hx Tobacco Use: No Smoking Status (MU): Never Smoked Tobacco Review of Systems Positive: Other - Negative weight loss. Negative: Fever, Chills, Skin Diaphoresis Negative: Erythema Negative: Sore Throat Negative: Chest Pain Negative: Shortness Of Breath, Cough Negative: Abdominal Pain, Vomiting, Nausea Positive: pain - Vaginal on labia, other - Positive erythema on labia and swelling of the labia. Negative: dysuria, hematuria Negative: Myalgia, Edema Positive: Other - Positive mass on the labia. Negative: Rash Neurological: Other - Negative dizziness All Other Systems Reviewed And Are Negative: Yes Physical Exam - Summary Physical Exam Summary: Constitutional: Well-developed, Well-nourished, Alert. (-) Distressed Skin: Warm, Dry HENT: Normocephalic; Atraumatic Eyes: Conjunctiva normal Neck: Musculoskeletal ROM normal neck. (-) JVD, (-) Stridor, (-) Tracheal deviation Cardio: Rhythm regular, rate normal, Heart sounds normal; Intact distal pulses; The pedal pulses are 2+ and symmetric. Radial pulses are 2+ and symmetric. (-) Murmur Pulmonary/Chest wall: Effort normal. (-) Respiratory distress, (-) Wheezes, (-) Rales Abd: Soft, (-) tenderness, (-) Distension, (-) Guarding, (-) Rebound Musculoskeletal: (-) Edema Lymph: (-) Cervical adenopathy Neuro: Alert, Oriented x3 Psych: Mood and affect Normal : indurated area from approximately 3 o'clock to 5:50 oclock, induration is deep, not appreciated superficially, indurated and smooth Triage Information Reviewed: Yes Vital Signs On Initial Exam: Initial Vitals Temp Pulse Resp BP Pulse Ox 97.5 F 64 18 155/82 98 02/15/19 11:30 02/15/19 11:30 02/15/19 11:30 02/15/19 11:30 02/15/19 11:30 Vital Signs Reviewed: Yes Procedures - Sedation Patient Received Moderate/Deep Sedation with Procedure: No Diagnostics - Vital Signs Vital Signs Temp Pulse Resp BP Pulse Ox 02/15/19 11:30 97.5 F 64 18 155/82 98 - Laboratory Result Diagrams: 02/15/19 12:20 02/15/19 12:20 Lab Statement: Any lab studies that have been ordered have been reviewed, and results considered in the medical decision making process. - Ultrasound Soft Tissue US Ultrasound Interpretation Completed By: Radiologist Summary of Ultrasound Findings: Soft Tissue US IMPRESSION: THE LEFT LABIA IS DIFFUSELY ENLARGED WITH AN AREA OF DECREASED ECHOGENICITY. DIFFERENTIAL DIAGNOSIS WOULD INCLUDE AN INFECTIOUS PROCESS VERSUS A MASS. THERE IS NO EVIDENCE FOR ABSCESS. Reviewed by ED physician. GIGU Course/Dx - Course Course Of Treatment: Pt is a 33 y/o F presenting to the ED for a chief complaint of an abscess in the labia. Pt reports decreased swelling and erythema since initial onset, but still reports a hard mass on the labia and vaginal pain. Pt has had the abscess on the labia since June 2018. Pt has a scheduled dental surgery in the upcoming weeks. Pt takes Clinda which she has taken for 7 days with no relief in symptoms. Pt initially believed she had a cyst on her labia. Pt also reports dental pain. Pt denies any fever, chills, diaphoresis, weight loss, erythema of eyes, sore throat, CP, SOB, cough, abdominal pain, N/V, dysuria, hematuria, myalgia, edema, rash, or dizziness. Pt denies a PMHx of DM. On exam, there is an indurated area from approximately 3 o 'clock to 5:50 oclock, induration is deep, not appreciated superficially, indurated and smooth. Laboratory abnormal findings: Hgb 11.3, Hct 34, MCV 78, MCH 26, MPV 7.0. Soft Tissue US IMPRESSION: THE LEFT LABIA IS DIFFUSELY ENLARGED WITH AN AREA OF DECREASED ECHOGENICITY. DIFFERENTIAL DIAGNOSIS WOULD INCLUDE AN INFECTIOUS PROCESS VERSUS A MASS. THERE IS NO EVIDENCE FOR ABSCESS. At 12:42, Dr. Reddy stated that since induration is deep rather than superficial and was improving, she recommended not performing an incision and drainage. Pt should be seen in the office within one week. Pt will be discharged with a diagnosis of labial mass. Follow up with Dr. Reddy within one week. - Diagnoses Provider Diagnoses: Mass of labium - Physician Notifications Discussed Care Of Patient With: Ragini Reddy Time Discussed With Above Provider: 12:42 - At 12:42, Dr. Reddy stated that since induration is deep rather than superficial and was improving, she recommended not performing an incision and drainage. Pt should be seen in the office within one week. Instructed by Provider To: Have Pt Call For Appt. - Within one week Discharge ED - Sign-Out/Discharge Documenting (check all that apply): Patient Departure - Discharge - Discharge Plan Condition: Stable Disposition: HOME Patient Education Materials: Soft Tissue Mass (ED) Forms: *Work Release Referrals: Clifton Snow MD [Primary Care Provider] - Ragini Reddy MD [Medical Doctor] - Additional Instructions: Finish Clindamycin. Follow up with Dr. Reddy in the office within one week. RETURN TO THE EMERGENCY DEPARTMENT FOR CHANGING OR WORSENING SYMPTOMS - Attestation Statements Document Initiated by Scribe: Yes Documenting Scribe: Miriam Flores Provider For Whom Scribe is Documenting (Include Credential): Sameer Robbins MD Scribe Attestation: Miriam Monreal, scribed for Sameer Robbins MD on 02/15/19 at 1329. Status of Scribe Document: Ready
[2019-02-15 12:26] LABS: Hematocrit 34 % (35-47); Hemoglobin 11.3 g/dL (12.0-16.0); Mean Corpuscular HGB Conc 33 g/dL (31-36); Mean Corpuscular Hemoglobin 26 pg (27-31); Mean Corpuscular Volume 78 fL (80-97); Platelet Count 310 10^3/uL (150-450); Red Blood Count 4.39 10^6 /uL (3.70-4.87); Red Cell Distribution Width 15 % (10-15); White Blood Count 8.3 10^3/uL (3.5-10.8)
[2019-02-15 12:50] LABS: Albumin 3.8 g/dL (3.2-5.2); Albumin/Globulin Ratio 1.3 (1-3); BUN/Creatinine Ratio 14.8 (8-20); C Reactive Protein 12.6 mg/L (<8.01); Calcium 8.9 mg/dL (8.6-10.3); EGFR African American 135.1 (>60); EGFR Non-African American 111.6 (>60); Potassium 3.6 mmol/L (3.5-5.0); Total Bilirubin 0.3 mg/dL (0.2-1.0); Total Protein 6.8 g/dL (6.4-8.9)
[2019-02-15 13:36] VITALS: BP 164/80
== END 2019-02-15 13:35 | disposition home or self-care (01) ==
LOC: ED 11:28
DX: N76.4 Abscess of vulva (principal); K08.89 Other specified disorders of teeth and supporting structures; I10 Essential (primary) hypertension; Z90.49 Acquired absence of other specified parts of digestive tract; Z88.0 Allergy status to penicillin
CPT/HCPCS: 36415; 80053; 83605; 85027; 86140; 99282